=== PATIENT | female | born 1990 | race Caucasian/White ===

== ENCOUNTER 2021-06-24 20:40 | Emergency (ER) | payer OTHER ==
[2021-06-24] MEDS ORDERED: SODIUM CHLORIDE 0.9% 1,000 ML IV ONE (23:04)
[2021-06-24 23:46] LABS: Basophils % (A) 0 %; Eosinophils # (A) 0.1 k/uL (0-0.7); Eosinophils % (A) 1 %; HCT 42.5 % (34.0-46.0); HGB 14.7 gm/dL (11.4-16.0); Lymphocytes # (A) 1.5 k/uL (1.0-4.8); Lymphocytes % (A) 15 %; MCH 30.1 pg (25.0-35.0); MCHC 34.5 g/dL (31.0-37.0); MCV 87.4 fL (80.0-100.0); Mean Platelet Volume 7.6; Monocytes # (A) 0.4 k/uL (0-1.0); Monocytes % (A) 4 %; Neutrophils % (A) 78 %; Platelet Count 304 k/uL (150-450); RBC 4.87 m/uL (3.80-5.40); RDW 12.3 % (11.5-15.5); WBC 10.3 k/uL (3.8-10.6)
[2021-06-24 23:57] LABS: ALT 20 U/L (4-34); AST 27 U/L (14-36); African American GFR (CKD) >90 (>60 ml/min/1.73 sqM); Albumin 4.6 g/dL (3.5-5.0); Alkaline Phosphatase 46 U/L (38-126); Anion Gap 10 mmol/L; Blood Urea Nitrogen 13 mg/dL (7-17); Calcium 9.7 mg/dL (8.4-10.2); Carbon Dioxide 23 mmol/L (22-30); Chloride 104 mmol/L (98-107); Glucose 102 mg/dL (74-99); Non-African American GFR(CKD) >90 (>60 ml/min/1.73 sqM); Potassium 4.2 mmol/L (3.5-5.1); Sodium 137 mmol/L (137-145); Total Bilirubin 0.2 mg/dL (0.2-1.3); Total Protein 7.1 g/dL (6.3-8.2)
[2021-06-25 00:09] LABS: Bacteria,Urine Rare /hpf; Squamous Epithelial Cell,Urine 7 /hpf (0-4)
[2021-06-25 00:10] LABS: Appearance,Urine Bloody (Clear)
[2021-06-25 00:11] LABS: Color,Urine Red; RBC,Urine >182 /hpf (0-5); WBC,Urine 25 /hpf (0-5)
[2021-06-25 00:14] LABS: HCG,Quantitative Serum 6310.5 mIU/mL
--- NOTE | 2021-06-25 00:25 | US ---
EXAMINATION TYPE: Transabdominal DATE OF EXAM: 06/25/2021 12:04 AM COMPARISON: NONE CLINICAL HISTORY: vaginal bleeding, 10 weeks. EXAM PERFORMED: Transabdominal (TA) EXAM MEASUREMENTS: GESTATIONAL AGE / DATING Physician Established: (9 weeks/6 days) EDC: 01/21/2022 Dates by LMP: (9 weeks/6 days) EDC: 01/21/2022 Dates by Current Scan for: (7 weeks/3 days) EDC: demise MATERNAL ANATOMY Uterus: 7.8 x 4.7 x 5.0 cm Right Ovary: Not visualized Left Ovary: 2.6 x 1.7 x 1.5 cm Post CDS / Adnexa: wnl Presence of free fluid: No Presence of corpus luteal cyst: No Presence of subchorionic bleed: No GESTATION / SURVEY CRL: 1.3 cm (7 weeks/3 days) Yolk Sac (normal less than 6mm): 2 mm IUP: Demise Date of LMP: 04/16/2021 Beta HcG (if available): Not available at this time demise. IMPRESSION: There is intrauterine demise at 7 weeks and 4 days.
[2021-06-25] MEDS ORDERED: Rhogam IMMUNE GLOBULIN 1,500 UNIT/1 ML IM ONE (00:44)
--- NOTE | 2021-06-25 00:53 | ED ---
General Adult HPI - General Chief complaint: Vaginal Bleeding Stated complaint: 10 weeks -cramping Time Seen by Provider: 06/24/21 22:27 Source: patient Mode of arrival: ambulatory - History of Present Illness Initial comments: 30 year-old female patient who is approximately 10 weeks presents to the emergency department for evaluation of vaginal bleeding and lower abdominal cramping. Patient is . Patient states she started having some spotting early in the morning. States a couple hours prior to arrival her bleeding became more heavy. She has passed small blood clots. Denies having to change her pad at all. She denies any dysuria, urinary urgency, or urinary frequency. Denies any fall or injury. Denies fever or chills. Denies abnormal vaginal discharge prior to onset of bleeding. She did have ultrasound last week which showed measuring 8 weeks. She will be seeing Dr. James. Patient denies any recent rash, cough, shortness of breath, chest pain, nausea, vomiting, diarrhea, constipation, back pain, numbness, tingling, dizziness, weakness, headache, visual changes, or any other complaints. - Related Data Allergies Allergy/AdvReac Type Severity Reaction Status Date / Time No Known Allergies Allergy Verified 06/24/21 22:26 Review of Systems ROS Statement: Those systems with pertinent positive or pertinent negative responses have been documented in the HPI. ROS Other: All systems not noted in ROS Statement are negative. Past Medical History Past Medical History: No Reported History History of Any Multi-Drug Resistant Organisms: None Reported Past Surgical History: No Surgical Hx Reported Past Psychological History: No Psychological Hx Reported Smoking Status: Never smoker Past Alcohol Use History: None Reported Past Drug Use History: None Reported General Exam General appearance: alert, in no apparent distress, other (This is a well- developed, well-nourished adult female patient in no acute distress. Vital signs upon presentation are temperature 98.0F, pulse 85, respirations 18, blood pressure 137/86, pulse ox 100% on room air.) Eye exam: Present: normal appearance, PERRL, EOMI. Absent: scleral icterus, conjunctival injection, periorbital swelling ENT exam: Present: normal exam, normal oropharynx, mucous membranes moist Respiratory exam: Present: normal lung sounds bilaterally. Absent: respiratory distress, wheezes, rales, rhonchi, stridor Cardiovascular Exam: Present: regular rate, normal rhythm, normal heart sounds. Absent: systolic murmur, diastolic murmur, rubs, gallop, clicks GI/Abdominal exam: Present: soft, normal bowel sounds. Absent: distended, tenderness, guarding, rebound, rigid Neurological exam: Present: alert, oriented X3, CN II-XII intact Psychiatric exam: Present: normal affect, normal mood Skin exam: Present: warm, dry, intact, normal color. Absent: rash Course Vital Signs 06/24/21 06/25/21 06/25/21 22:24 01:26 02:31 Temperature 98 F 98.1 F Pulse Rate 85 79 68 Respiratory 18 18 17 Rate Blood Pressure 137/86 113/71 112/70 O2 Sat by Pulse 100 99 98 Oximetry Medical Decision Making - Medical Decision Making 30-year-old female patient presents to the emergency department today for evaluation of lower abdominal cramping and vaginal bleeding. She is approximately 10 weeks . Physical examination was unremarkable. Abdomen soft and nontender. Labs reviewed and did reveal beta hCG around 6000. Ultrasound of the fetus was obtained and showed evidence for demise at 7 weeks and 3 days, no cardiac activity. I did discuss findings and results with the patient and her . She did have ABO/Rh O- and did require rhogam injection. She will be discharged to follow up with OBGYN as soon as possible. Return parameters were discussed in detail. Patient and verbalize understanding and agree with this plan. I attending is Dr. Pelayo. - Lab Data Result diagrams: 06/24/21 23:32 06/24/21 23:32 Lab Results 06/24/21 06/24/21 06/24/21 Range/Units 23:32 23:32 23:32 WBC 10.3 (3.8-10.6) k/uL RBC 4.87 (3.80-5.40) m/uL Hgb 14.7 (11.4-16.0) gm/dL Hct 42.5 (34.0-46.0) % MCV 87.4 (80.0-100.0) fL MCH 30.1 (25.0-35.0) pg MCHC 34.5 (31.0-37.0) g/dL RDW 12.3 (11.5-15.5) % Plt Count 304 (150-450) k/uL MPV 7.6 Neutrophils % 78 % Lymphocytes % 15 % Monocytes % 4 % Eosinophils % 1 % Basophils % 0 % Neutrophils # 8.0 H (1.3-7.7) k/uL Lymphocytes # 1.5 (1.0-4.8) k/uL Monocytes # 0.4 (0-1.0) k/uL Eosinophils # 0.1 (0-0.7) k/uL Basophils # 0.0 (0-0.2) k/uL Sodium 137 (137-145) mmol/L Potassium 4.2 (3.5-5.1) mmol/L Chloride 104 (98-107) mmol/L Carbon Dioxide 23 (22-30) mmol/L Anion Gap 10 mmol/L BUN 13 (7-17) mg/dL Creatinine 0.62 (0.52-1.04) mg/dL Est GFR (CKD-EPI)AfAm >90 (>60 ml/min/1.73 sqM) Est GFR (CKD-EPI)NonAf >90 (>60 ml/min/1.73 sqM) Glucose 102 H (74-99) mg/dL Calcium 9.7 (8.4-10.2) mg/dL Total Bilirubin 0.2 (0.2-1.3) mg/dL AST 27 (14-36) U/L ALT 20 (4-34) U/L Alkaline Phosphatase 46 (38-126) U/L Total Protein 7.1 (6.3-8.2) g/dL Albumin 4.6 (3.5-5.0) g/dL HCG, Quant 6310.5 mIU/mL Urine Color Urine Appearance (Clear) Urine RBC (0-5) /hpf Urine WBC (0-5) /hpf Ur Squamous Epith Cells (0-4) /hpf Urine Bacteria (None) /hpf Blood Type O Negative Blood Type Confirm Blood Type Recheck No Previous Record Bld Type Recheck Status CABO Indicated Antibody Screen 06/24/21 06/24/21 06/24/21 Range/Units 23:32 23:32 23:35 WBC (3.8-10.6) k/uL RBC (3.80-5.40) m/uL Hgb (11.4-16.0) gm/dL Hct (34.0-46.0) % MCV (80.0-100.0) fL MCH (25.0-35.0) pg MCHC (31.0-37.0) g/dL RDW (11.5-15.5) % Plt Count (150-450) k/uL MPV Neutrophils % % Lymphocytes % % Monocytes % % Eosinophils % % Basophils % % Neutrophils # (1.3-7.7) k/uL Lymphocytes # (1.0-4.8) k/uL Monocytes # (0-1.0) k/uL Eosinophils # (0-0.7) k/uL Basophils # (0-0.2) k/uL Sodium (137-145) mmol/L Potassium (3.5-5.1) mmol/L Chloride (98-107) mmol/L Carbon Dioxide (22-30) mmol/L Anion Gap mmol/L BUN (7-17) mg/dL Creatinine (0.52-1.04) mg/dL Est GFR (CKD-EPI)AfAm (>60 ml/min/1.73 sqM) Est GFR (CKD-EPI)NonAf (>60 ml/min/1.73 sqM) Glucose (74-99) mg/dL Calcium (8.4-10.2) mg/dL Total Bilirubin (0.2-1.3) mg/dL AST (14-36) U/L ALT (4-34) U/L Alkaline Phosphatase (38-126) U/L Total Protein (6.3-8.2) g/dL Albumin (3.5-5.0) g/dL HCG, Quant mIU/mL Urine Color Red Urine Appearance Bloody H (Clear) Urine RBC >182 H (0-5) /hpf Urine WBC 25 H (0-5) /hpf Ur Squamous Epith Cells 7 H (0-4) /hpf Urine Bacteria Rare H (None) /hpf Blood Type Blood Type Confirm O Negative Blood Type Recheck Bld Type Recheck Status Antibody Screen NEGATIVE - Radiology Data Radiology results: report reviewed, image reviewed Ultrasound of the fetus was obtained. Report is reviewed in its entirety. Impression by Dr. Guerrier shows intrauterine demise at 7 weeks and 4 days. Disposition Clinical Impression: Miscarriage Disposition: HOME SELF-CARE Condition: Good Instructions (If sedation given, give patient instructions): Miscarriage (ED) Additional Instructions: Follow-up with [facility] for recheck as soon as possible. Return to the emergency department immediately for any new, worsening, or concerning symptoms. Is patient prescribed a controlled substance at d/c from ED?: No Referrals: Mela Boone MD [Primary Care Provider] - 1-2 days Whitney James DO [Doctor of Osteopathic Medicine] - 1-2 days Time of Disposition: 00:53
[2021-06-25] MEDS ORDERED: MORPHINE SULFATE 2 MG/ML SYRINGE IVP STA (01:33)
[2021-06-25] MEDS ORDERED: ONDANSETRON 4 MG/2 ML VIAL IVP STA (01:33)
[2021-06-25] MEDS ORDERED: ACET/COD 300 MG/30 MG STARTER PACK 6 TAB BTL PO STA (01:34)
[2021-06-25 02:32] VITALS: BP 112/70; PULSE 68; RESP 17; TEMP 98.1
== END 2021-06-25 02:32 | disposition home or self-care (01) ==
LOC: EC 20:40
DX: O03.9 Complete or unspecified spontaneous abortion without complication (principal); Z3A.10 10 weeks gestation of pregnancy
CPT/HCPCS: 99284; 96374; 96375; 96361 ×2; 96372; 36415; 86900; 86901; 80053; 85025; 86850; 81001; 84702; 87086; 76801; J2790; J2405; J2270

== ENCOUNTER 2022-05-31 05:57 | Inpatient (IN) | payer MEDICAID ==
[2022-05-31] MEDS ORDERED: CARBOPROST TROMETHAMINE 250 MCG/ML 1 ML AMP IM PRN (06:08)
[2022-05-31] MEDS ORDERED: TERBUTALINE 1 MG/ML VIAL SQ PRN (06:08)
[2022-05-31] MEDS ORDERED: METHYLERGONOVINE 0.2 MG/ML 1 ML AMP IM PRN (06:08)
[2022-05-31] MEDS ORDERED: LIDOCAINE 0.5% (PF) 5 MG/ML (50 ML SDV) SQ PRN (06:08)
[2022-05-31] MEDS ORDERED: OXYTOCIN 10 UNIT/ML 1 ML VIAL IM PRN (06:08)
[2022-05-31] MEDS: LACTATED RINGERS 1,000 ML IV SCH ×2 (06:14→17:25)
[2022-05-31] MEDS ORDERED: OXYTOCIN 30 UNITS/500 ML NS 30 UNIT in SALINE 1 500ML.BAG IV SCH ×2 (06:15→16:45)
[2022-05-31 06:28] LABS: Basophils % (A) 0 %; Eosinophils # (A) 0.1 k/uL (0-0.7); Eosinophils % (A) 1 %; HCT 39.5 % (34.0-46.0); HGB 12.6 gm/dL (11.4-16.0); Lymphocytes # (A) 1.8 k/uL (1.0-4.8); Lymphocytes % (A) 22 %; MCH 27.3 pg (25.0-35.0); MCHC 31.9 g/dL (31.0-37.0); MCV 85.4 fL (80.0-100.0); Mean Platelet Volume 11.5; Monocytes # (A) 0.5 k/uL (0-1.0); Monocytes % (A) 6 %; Neutrophils # (A) 5.6 k/uL (1.3-7.7); Neutrophils % (A) 68 %; Platelet Count 220 k/uL (150-450); RBC 4.63 m/uL (3.80-5.40); RDW 13.2 % (11.5-15.5); WBC 8.2 k/uL (3.8-10.6)
[2022-05-31] MEDS ORDERED: BUTORPHANOL 1 MG/ML 1 ML VIAL IV PRN (10:46)
[2022-05-31] MEDS ORDERED: SODIUM CHLORIDE 0.9% 100 ML BAG ONE (12:38)
[2022-05-31] MEDS ORDERED: ROPIVACAINE 5MG/ML 20ML VIAL ONE (12:38)
[2022-05-31] MEDS ORDERED: fentaNYL (PF) 50 MCG/ML 5 ML AMP ONE (12:38)
[2022-05-31] MEDS ORDERED: diphenhydrAMINE 50 MG CAP PO PRN (16:43)
[2022-05-31] MEDS ORDERED: BENZOCAINE/MENTHOL SPRAY 1 GM/SPRAY AEROSOL TOPICAL PRN (16:43)
[2022-05-31] MEDS ORDERED: HYDROCORTISONE 2.5% RECTAL CREAM 30 GM TUBE RECTAL PRN (16:43)
[2022-05-31] MEDS ORDERED: ZOLPIDEM 5 MG TAB PO PRN (16:43)
[2022-05-31] MEDS ORDERED: diphenhydrAMINE 25 MG CAP PO PRN (16:43)
[2022-05-31] MEDS ORDERED: diphenhydrAMINE 50 MG/ML 1 ML VIAL IVP PRN ×2 (16:43)
[2022-05-31] MEDS ORDERED: SIMETHICONE 80 MG CHEWABLE PO PRN (16:43)
[2022-05-31] MEDS ORDERED: LANOLIN CREAM 5 GM TUBE TOPICAL PRN (16:43)
--- NOTE | 2022-05-31 16:43 | P.HPOB ---
History of Present Illness H&P Date: 05/31/22 Chief Complaint: IUP at 40 and 0 This is a 31-year-old at 40-0/7 weeks that presents to labor and delivery for induction of labor. Patient is receiving routine care which has been essentially uncomplicated. Patient notes good movement denies vaginal bleeding or loss of fluid at this time. On bloodwork this patient is a blood type of O-, rubella status immune, B surface antigen negative, RPR is nonreactive, HIV is negative, group beta strep cultures were negative. Review of Systems Constitutional: Denies chills, Denies fatigue, Denies fever Ears, nose, mouth and throat: Denies headache Cardiovascular: Denies leg edema Respiratory: Reports dyspnea Gastrointestinal: Denies constipation, Denies diarrhea, Denies nausea, Denies vomiting Genitourinary: Reports Past Medical History Past Medical History: No Reported History History of Any Multi-Drug Resistant Organisms: None Reported Past Surgical History: Hernia Repair Additional Past Surgical History / Comment(s): Pt reports umbilical hernia repair when she was 4 or 5 years old Past Anesthesia/Blood Transfusion Reactions: No Reported Reaction Past Psychological History: No Psychological Hx Reported Smoking Status: Never smoker Past Alcohol Use History: None Reported Past Drug Use History: None Reported - Past Family History Father Family Medical History: No Reported History Mother Family Medical History: No Reported History Medications and Allergies Home Medications Medication Instructions Recorded Confirmed Type Aspirin [Adult Low Dose Aspirin EC] 81 mg PO DAILY 05/31/22 05/31/22 History Vit No.179/Iron/Folic 1 tablet PO DAILY 05/31/22 05/31/22 History [ Tablet] Allergies Allergy/AdvReac Type Severity Reaction Status Date / Time No Known Allergies Allergy Verified 05/31/22 06:00 Exam Osteopathic Statement: *. No significant issues noted on an osteopathic structural exam other than those noted in the History and Physical/Consult. Vital Signs Temp Pulse Resp BP Pulse Ox 05/31/22 06:17 98.3 F 82 18 99/56 98 Intake and Output 05/31/22 05/31/22 05/31/22 06:59 14:59 22:59 Other: # Voids 1 Weight 73.936 kg Targeted physical exam is performed and state in general this is a well- nourished well-developed female in no acute distress, breathing is noted to be nonlabored, heart has a regular rhythm, abdomen is gravid and appropriate for gestational age, on vaginal exam she is 2/80/-2 station amniotomy is performed and clear fluid was obtained. heart tones noted to be category 1 and she is elise irregularly. Results Result Diagrams: 05/31/22 06:14 Assessment and Plan (1) Term Current Visit: Yes Status: Acute Code(s): Z34.90 - ENCNTR FOR SUPRVSN OF NORMAL , UNSP, UNSP TRIMESTER SNOMED Code(s): 92686014 Plan: 31-year-old at 40-0/7 weeks that presents for elective induction of labor. Patient is admitted to labor and delivery and Pitocin induction of labor is b egun per hospital protocol. Amniotomy is performed and clear fluid was obtained. Options for analgesia are discussed including Stadol and epidural she will consider. Anticipate spontaneous vaginal delivery later today.
--- NOTE | 2022-05-31 16:46 | P.PROBDLV ---
Vaginal Delivery Note - . Vaginal Delivery Note: 31-year-old 1 para 0 that presented to labor and delivery at 40-0/7 weeks for elective induction of labor. Patient was admitted to labor and delivery and Pitocin induction of labor was begun. Once regular contractions were noted amniotomy was performed and clear fluid was obtained. Patient progressed in labor eventually becoming uncomfortable and did request epidural placement. Epidural was placed without difficulty by the anesthesia department. Patient made good progress towards complete and was noted to be completely dilated at 1503, patient began pushing and had a normal spontaneous vaginal delivery of a viable female at 1617, weight of 6 lbs. 15 oz., Apgars of 8 and 9 at one and 5 minutes or sexually. was noted to be in an occiput anterior presentation with a left compound hand. No nuchal cord was appreciated. After two-minute delayed the umbo cord was doubly clamped and cut and the was handed to the maternal abdomen, spontaneous cry was noted at . Placenta was then delivered spontaneously intact with three-vessel cord being noted. On inspection the patient's vaginal vault a secondary midline laceration was appreciated. This was instilled with lidocaine repaired in usual fashion with 3-0 repeat. Hemostasis was appreciated afterwards. Uterus is noted be firm and below the umbilicus. The bladder was drained prior to repair for approximately 300 mL of clear yellow urine. Estimated blood loss 200 mL. Patient and tolerated delivery well and are resting comfortably. All counts were noted be correct 2 at the end of the delivery
[2022-05-31] MEDS: IBUPROFEN 600 MG TAB PO SCH ×2 (17:25→18:08)
[2022-05-31] MEDS: SENNOSIDES-DOCUSATE SODIUM 1 EACH TAB PO SCH (20:07)
[2022-05-31] MEDS: ACETAMINOPHEN TAB 325 MG TAB PO PRN (20:07)
[2022-06-01] MEDS: IBUPROFEN 600 MG TAB PO SCH ×4 (00:26→17:48)
[2022-06-01] MEDS: LACTATED RINGERS 1,000 ML IV SCH ×3 (04:23→14:40)
[2022-06-01] MEDS: ACETAMINOPHEN TAB 325 MG TAB PO PRN ×2 (05:43→17:21)
[2022-06-01] MEDS: SENNOSIDES-DOCUSATE SODIUM 1 EACH TAB PO SCH (07:35)
[2022-06-01 08:29] VITALS: RESP 18
--- NOTE | 2022-06-01 10:45 | P.DS ---
Providers Date of admission: 05/31/22 05:57 Expected date of discharge: 06/01/22 Attending physician: Whitney James Primary care physician: Mela Boone - Discharge Diagnosis(es) (1) Term Current Visit: Yes Status: Acute (2) Status post vaginal delivery Current Visit: Yes Status: Acute (3) Obstetric vaginal laceration with second degree perineal laceration Current Visit: Yes Status: Acute Hospital Course: This is a 31 yo G1 now P1 that presented to labor and delivery on 05/31 40 0/7 weeks for elective induction of labor. patient has been receiving routing care, for full detail oon this patient please see the dictated history and physical. she was admitted and pitocin induction of labor was begun per hospital protocol. she did become uncomfortable and requested epidural placement. Epidural was placed by the anesthesia department. she progressed to complete and began pushing, she had a , of a viable female infant at 16:17, weight 6-15, apgars of 8 and 9 at one and five minutes respectively. she did sustain a second degree vaginal laceration, This was repaired in the usual fashion with 3-0 rapide. Patients post course has been uneventful, on this postpartumd ay 1 she is ambulating and voiding without difficulty. she is tolerating a regular diet. she is breast feeding without difficulty. she states lochia is moderate. she is feeling well overall and would like discharge home at 24 hours of possible. pain is well controlled with ibuprofen. Patient Condition at Discharge: Good Plan - Discharge Summary New Discharge Prescriptions: No Action Vit No.179/Iron/Folic [ Tablet] 1 tablet PO DAILY Aspirin [Adult Low Dose Aspirin EC] 81 mg PO DAILY Discharge Medication List Aspirin [Adult Low Dose Aspirin EC] 81 mg PO DAILY 05/31/22 [History] Vit No.179/Iron/Folic [ Tablet] 1 tablet PO DAILY 05/31/22 [History] Follow up Appointment(s)/Referral(s): Whitney James DO [Doctor of Osteopathic Medicine] - 4 Weeks Patient Instructions/Handouts: Vaginal Delivery (GEN), Vaginal Delivery (DC) Discharge Disposition: HOME SELF-CARE
[2022-06-01 12:06] VITALS: BP 118/68; PULSE 93; TEMP 98.2
== END 2022-06-01 17:27 | disposition home or self-care (01) | DRG 807 ==
LOC: 4FBP 05:57
PROVIDERS: ADMIT Obstetrics & Gynecology Obstetrics; ATTEND Obstetrics & Gynecology Obstetrics
PROC: 0KQM0ZZ Repair Perineum Muscle, Open Approach (ICD-10-PCS; principal; 2022-05-31)
PROC: 3E033VJ Introduction of Other Hormone into Peripheral Vein, Percutaneous Approach (ICD-10-PCS; principal; 2022-05-31)
PROC: 10E0XZZ Delivery of Products of Conception, External Approach (ICD-10-PCS; principal; 2022-05-31)
PROC: 4A0HXCZ Measurement of Products of Conception, Cardiac Rate, External Approach (ICD-10-PCS; principal; 2022-05-31)
PROC: 10907ZC Drainage of Amniotic Fluid, Therapeutic from Products of Conception, Via Natural or Artificial Opening (ICD-10-PCS; principal; 2022-05-31)
DX: O32.6XX0 Maternal care for compound presentation, not applicable or unspecified (principal); Z37.0 Single live birth; O70.1 Second degree perineal laceration during delivery; Z3A.40 40 weeks gestation of pregnancy; Z79.82 Long term (current) use of aspirin; Z87.19 Personal history of other diseases of the digestive system
CPT/HCPCS: 85025; 86850; 86870; 86880; 86900; 86901

== ENCOUNTER 2024-07-07 12:05 | Outpatient (CLI) | payer MEDICAID ==
[2024-07-07 14:34] VITALS: BP 125/73; PULSE 103; RESP 16; TEMP 97.1
--- NOTE | 2024-08-08 09:30 | P.MSEPDOC ---
Presenting Problems - Arrival Data Date of Arrival on Unit: 07/07/24 Time of Arrival on Unit: 12:05 Mode of Transport: Ambulatory - Complaint OB-Reason for Admission/Chief Complaint: Possible Onset of Labor Comment: pt. present to triage due to contractions pt. states contractions started around 7am today were regular every couple of min until recently they have became irregular and unable to time them, pt. states pain / Medical History - Information : 3 Para: 1 Term: 1 : 0 Abortions: Spontaneous or Elective: 1 Number of Living Children: 1 - Gestational Age Gestational Age by KIRILL (wks/days): 38 Weeks and 3 Days Review of Systems - Review of Systems Constitutional: No problems Breast: No problems ENT: No problems Cardiovascular: No problems Respiratory: No problems Gastrointestinal: No problems Genitourinary: No problems Musculoskeletal: No problems Neurological: No problems Skin: No problems Vital Signs - Temperature Temperature: 97.1 F Temperature Source: Temporal Artery Scan - Pulse Right Sitting Pulse Rate: 103 Pulse Assessment Method: Automatic Cuff - Respirations Respiratory Rate: 16 Oxygen Delivery Method: Room Air O2 Sat by Pulse Oximetry: 98 - Blood Pressure Right Arm Blood Pressure: 125/73 Blood Pressure Mean: 90 Medical Screen Scoring - Cervical Exam Dilation (cm): 1 Effacement (%): 80 Station: -2 Membranes: Intact - Uterine Contractions Frequency From (mins): 4 Frequency To (mins): 8 Duration From (seconds): 50 Duration To (seconds): 120 Intensity: Mild Resting: Soft to palpation - Assessment - Baby A Baseline FHR: 130 Heart Rate - NICHD Category: Category I (Normal) NST: Reactive Physician Notification - Physician Notified Physician Notified Date: 07/07/24 Physician Notified Time: 12:20 Physician: Dr. James New Order Received: Yes - Notification Comment Comment: order to discharge pt. home, pt. cervix initally 1, 60%-3, after the hour pt. 1, 80%,-3 orders to wait another hour if no cervical change discharge pt. home, cervix still 1,80%-3 Maternal Triage Index - Maternal Triage Index Presenting for scheduled procedure w/no complaint: No - Stat/Priority 1 Stat Priority 1: No - Urgent/Priority 2 Urgent Priority 2: No - Prompt/Priority 3 Prompt Priority 3: No - Non-Urgent/Priority 4 Non-Urgent Priority 4: Yes Criteria Met for Priority 4: 38 and 3 weeks, contractions, pain 11/01 Disposition - Disposition OB Disposition: Discharge to home Discharge Date: 07/07/24 Discharge Time: 14:22 I agree with the RN Medical Screening Exam: Yes Case reviewed; plan agreed upon as documented in EMR&OBIX.: Yes Diagnosis: FALSE LABOR AT OR AFTER 37 COMPLETED WEEKS OF GESTATION
== END 2024-07-07 14:22 | disposition home or self-care (01) ==
LOC: FBPOP 12:05
PROVIDERS: ATTEND Obstetrics & Gynecology Obstetrics
CPT/HCPCS: 59025; 99213

== ENCOUNTER 2024-07-12 06:00 | Inpatient (IN) | payer MEDICAID ==
[2024-07-12] MEDS: LACTATED RINGERS 1,000 ML IV SCH (06:20)
[2024-07-12] MEDS ORDERED: METHYLERGONOVINE 0.2 MG/ML 1 ML AMP IM PRN (06:34)
[2024-07-12] MEDS ORDERED: miSOPROStoL 200 MCG TAB RECTAL PRN (06:34)
[2024-07-12] MEDS ORDERED: TERBUTALINE 1 MG/ML VIAL SQ PRN (06:34)
[2024-07-12] MEDS ORDERED: miSOPROStoL 200 MCG TAB PO PRN (06:34)
[2024-07-12] MEDS ORDERED: LIDOCAINE 0.5% (PF) 5 MG/ML (50 ML SDV) SQ PRN (06:34)
[2024-07-12] MEDS ORDERED: CARBOPROST TROMETHAMINE 250 MCG/ML 1 ML AMP IM PRN (06:34)
[2024-07-12] MEDS ORDERED: TRANEXAMIC 1,000 MG/100ML-NACL 1,000 MG in EMPTY BAG 1 BAG IV PRN (06:34)
[2024-07-12] MEDS ORDERED: OXYTOCIN 10 UNIT/ML 1 ML VIAL IM PRN (06:34)
[2024-07-12 06:41] VITALS: RESP 16
[2024-07-12] MEDS ORDERED: OXYTOCIN 30 UNITS/500 ML NS 30 UNIT in SALINE 1 500ML.BAG IV SCH (06:45)
[2024-07-12] MEDS: OXYTOCIN 30 UNITS/500 ML NS 30 UNIT in SALINE 1 500ML.BAG IV SCH (06:50)
[2024-07-12 07:06] LABS: Basophils % (A) 0 %; Eosinophils # (A) 0.1 k/uL (0-0.7); Eosinophils % (A) 2 %; HCT 36.9 % (34.0-46.0); HGB 12.1 gm/dL (11.4-16.0); Hypochromasia Slight; Lymphocytes # (A) 1.5 k/uL (1.0-4.8); Lymphocytes % (A) 17 %; MCH 27.2 pg (25.0-35.0); MCHC 32.7 g/dL (31.0-37.0); MCV 83.2 fL (80.0-100.0); Mean Platelet Volume 9.9; Monocytes # (A) 0.5 k/uL (0-1.0); Monocytes % (A) 6 %; Neutrophils # (A) 6.3 k/uL (1.3-7.7); Neutrophils % (A) 73 %; Platelet Count 241 k/uL (150-450); RBC 4.44 m/uL (3.80-5.40); RDW 14.2 % (11.5-15.5); WBC 8.6 k/uL (3.8-10.6)
--- NOTE | 2024-07-12 09:43 | P.HPOB ---
History of Present Illness H&P Date: 07/12/24 Chief Complaint: IUP at 39 and 1 sevenths weeks 33-year-old -0-1-1 at 39 and 1 sevenths weeks, estimated due date of 07/18 presents for induction of labor. Patient has been receiving routine care which has been essentially uncomplicated. Patient notes good movement denies vaginal bleeding or loss of fluid. On blood work this patient has a blood type of O-, rubella status immune, hepatitis B surface engine negative, HIV negative, RPR is nonreactive, grew beta strep culture is negative. Review of Systems Constitutional: Denies chills, Denies fatigue, Denies fever Ears, nose, mouth and throat: Denies headache Cardiovascular: Reports leg edema Respiratory: Denies dyspnea Gastrointestinal: Denies nausea, Denies vomiting Genitourinary: Reports Past Medical History Past Medical History: No Reported History History of Any Multi-Drug Resistant Organisms: None Reported Past Surgical History: Hernia Repair Additional Past Surgical History / Comment(s): Pt reports umbilical hernia repair when she was 4 or 5 years old Past Anesthesia/Blood Transfusion Reactions: No Reported Reaction Past Psychological History: No Psychological Hx Reported Smoking Status: Never smoker Past Alcohol Use History: None Reported Past Drug Use History: None Reported - Past Family History Father Family Medical History: No Reported History Mother Family Medical History: No Reported History Medications and Allergies Home Medications Medication Instructions Recorded Confirmed Type Aspirin [Adult Low Dose Aspirin EC] 81 mg PO DAILY 05/31/22 07/07/24 History Vit No.179/Iron/Folic 1 tablet PO DAILY 05/31/22 07/07/24 History [ Tablet] Allergies Allergy/AdvReac Type Severity Reaction Status Date / Time No Known Allergies Allergy Verified 07/12/24 06:34 Exam Osteopathic Statement: *. No significant issues noted on an osteopathic structural exam other than those noted in the History and Physical/Consult. Vital Signs Temp Pulse Resp BP Pulse Ox 07/12/24 06:24 97.5 F L 114 H 16 111/71 97 Intake and Output 07/11/24 07/12/24 07/12/24 22:59 06:59 14:59 Other: Weight 80.739 kg Targeted physical exam is performed this date General Is a well-nourished well- developed female in no acute distress, breathing is nonlabored, heart has a regular rhythm, abdomen is gravid and appropriate for gestational age, on cervical exam she is 2-3/50/-2 station amniotomy is performed and clear fluid was obtained, heart tones are noted to be category 1 and she is elise every 1 to 4 minutes. Results Result Diagrams: 07/12/24 06:45 Assessment and Plan (1) Term Current Visit: No Status: Acute Code(s): Z34.90 - ENCNTR FOR SUPRVSN OF NORMAL , UNSP, UNSP TRIMESTER SNOMED Code(s): 61757939 Plan: 33-year-old 3 para 1-0-1-1 at 39 and 1 sevenths weeks that presents for induction of labor. Patient is admitted and Pitocin induction of labor was begun. Amniotomy is performed and clear fluid was obtained. Patient is counseled on options for analgesia including Nubain, nitrous, epidural. Patient will consider. Anticipate spontaneous vaginal delivery later today.
[2024-07-12] MEDS ORDERED: fentaNYL (PF) 50 MCG/ML 5 ML AMP ONE (10:41)
[2024-07-12] MEDS ORDERED: ROPIVACAINE 5 MG/ML 30 ML VIAL ONE (10:41)
[2024-07-12] MEDS ORDERED: SODIUM CHLORIDE 0.9% 250 ML BAG ONE (10:41)
[2024-07-12] MEDS: FAMOTIDINE 20 MG/2 ML VIAL IV STA (13:57)
[2024-07-12] MEDS ORDERED: diphenhydrAMINE 25 MG CAP PO PRN (17:50)
[2024-07-12] MEDS ORDERED: BENZOCAINE/MENTHOL SPRAY 1 GM/SPRAY AEROSOL TOPICAL PRN (17:50)
[2024-07-12] MEDS ORDERED: LANOLIN CREAM 1 GM TUBE TOPICAL PRN (17:50)
[2024-07-12] MEDS ORDERED: HYDROCORTISONE 2.5% RECTAL CREAM 30 GM TUBE RECTAL PRN (17:50)
[2024-07-12] MEDS ORDERED: diphenhydrAMINE 50 MG/ML 1 ML VIAL IVP PRN ×2 (17:50)
[2024-07-12] MEDS ORDERED: diphenhydrAMINE 50 MG CAP PO PRN (17:50)
[2024-07-12] MEDS ORDERED: SIMETHICONE 80 MG CHEWABLE PO PRN (17:50)
[2024-07-12] MEDS ORDERED: ZOLPIDEM 5 MG TAB PO PRN (17:50)
--- NOTE | 2024-07-12 17:53 | P.PROBDLV ---
Vaginal Delivery Note - . Vaginal Delivery Note: Findings viable female delivered at 1729, weight is pending. Apgars of 8 and 9 at 1 and 5 minutes respectively. 33-year-old G3, P1 at 39 weeks that presented to labor and delivery for induction of labor this morning. Patient was admitted and Pitocin induction of labor was begun. Patient underwent amniotomy and clear fluid was obtained. Patient became uncomfortable and requested epidural. Epidural was placed without difficulty by the anesthesia department. Patient made good progress toward complete dilation. Once patient was noted to be completely dilated she began pushing. With excellent maternal effort patient had a normal spontaneous vaginal delivery of a viable female infant at 1729, loose nuchal cord was delivered through. After 2-minute delay the umbilical cord was doubly clamped and cut. The stent was delivered spontaneously intact with a three-vessel cord being noted. Spontaneous cry was noted at . Bladder was drained for approximately 100 cc of clear yellow urine. On inspection the patient's vaginal vault a secondary midline laceration was appreciated. This was injected with lidocaine and repaired in the usual fashion with 3-0 Rapide. Hemostasis was noted after repair. Uterus was noted to be firm and below the umbilicus after repair. All counts noted be correct x 2. Patient and infant tolerated delivery well and are resting comfortably.
[2024-07-12] MEDS: IBUPROFEN 600 MG TAB PO SCH (20:35)
[2024-07-12] MEDS: SENNOSIDES-DOCUSATE SODIUM 1 EACH TAB PO SCH (20:35)
[2024-07-12] MEDS: Rhogam IMMUNE GLOBULIN 1,500 UNIT/1 ML IM ONE (20:55)
[2024-07-13] MEDS: ACETAMINOPHEN TAB 325 MG TAB PO PRN (00:21)
--- NOTE | 2024-07-13 11:17 | P.DS ---
Providers Date of admission: 07/12/24 06:00 Expected date of discharge: 07/13/24 Attending physician: Whitney James Primary care physician: Stated None - Discharge Diagnosis(es) (1) Status post vaginal delivery Current Visit: No Status: Acute Hospital Course: The patient is a 33-year-old 3 para 1-0-1-1 admitted at 39 and 1 sevenths weeks by good dating parameters. She is admitted for elective induction of labor with all signs reassuring, category 1 heart rate tracing. Her has been uncomplicated and group B strep status is ne gative. On labor delivery, she had Pitocin started followed by artificial rupture of membranes. She made progress into the active phase of labor and had an epidural catheter placed for analgesia. She ultimately progressed to complete and pushed to a normal spontaneous vaginal delivery of a viable 7 pound 10 ounce baby girl with Apgars of 8 at 1 minute and 9 at 5 minutes. Her course was unremarkable with vital signs remaining stable and her temperature was afebrile throughout. She was deemed stable for discharge on day #1 and was discharged home to follow-up in the office in 6 weeks time routinely. Discharge instructions included calling for any significantly increased bleeding or foul-smelling lochia, significantly increased fever or abdominal pain, perineal complaints, breast complaints, or anything else that concerned her. She was additionally instructed to have nothing in the vagina for at least 6 weeks time to include intercourse. She understood her in structions and agrees to follow-up as noted above. Discharge medications included continued vitamins as she has opted to breast-feed. She was otherwise to use [id number] analgesic pain medications as needed. Maternal blood type is O- and cord blood was sent for evaluation for the necessity of RhoGAM prior to discharge. Rubella status is immune. Procedures: #1. Pitocin induction #2. Artificial rupture of membranes #3. Epidural analgesia #4. Normal spontaneous vaginal delivery #5. Repair of perineal laceration Patient Condition at Discharge: Stable Plan - Discharge Summary New Discharge Prescriptions: No Action Vit No.179/Iron/Folic [ Tablet] 1 tablet PO DAILY Aspirin [Adult Low Dose Aspirin EC] 81 mg PO DAILY Discharge Medication List Aspirin [Adult Low Dose Aspirin EC] 81 mg PO DAILY 05/31/22 [History] Vit No.179/Iron/Folic [ Tablet] 1 tablet PO DAILY 05/31/22 [History] Follow up Appointment(s)/Referral(s): Whitney James DO [Doctor of Osteopathic Medicine] - 6 Weeks Discharge Disposition: HOME SELF-CARE
[2024-07-13 17:21] VITALS: BP 113/72; PULSE 89; TEMP 97.6
== END 2024-07-13 18:23 | disposition home or self-care (01) | DRG 807 ==
LOC: 4FBP 06:00
PROVIDERS: ADMIT Obstetrics & Gynecology Obstetrics; ATTEND Obstetrics & Gynecology Obstetrics
PROC: 10E0XZZ Delivery of Products of Conception, External Approach (ICD-10-PCS; principal; 2024-07-12)
PROC: 0KQM0ZZ Repair Perineum Muscle, Open Approach (ICD-10-PCS; 2024-07-12)
PROC: 10907ZC Drainage of Amniotic Fluid, Therapeutic from Products of Conception, Via Natural or Artificial Opening (ICD-10-PCS; 2024-07-12)
PROC: 3E033VJ Introduction of Other Hormone into Peripheral Vein, Percutaneous Approach (ICD-10-PCS; 2024-07-12)
DX: O70.1 Second degree perineal laceration during delivery (principal); Z37.0 Single live birth; Z3A.39 39 weeks gestation of pregnancy; Z79.82 Long term (current) use of aspirin
CPT/HCPCS: 85025; 85461; 86850; 86900; 86901